=== PATIENT | female | born 1955 | race Caucasian/White ===

== ENCOUNTER 2017-03-14 14:55 | Inpatient (IN) | payer OTHER ==
--- NOTE | ~2017-03-14 | EKG ---
PATIENT: ZO JUDD UNIT #: [id number] Ventricular Rate: 67 BPM Atrial Rate: 67 BPM P-R Interval: 160 ms QRS Duration: 96 ms Q-T Interval: 420 ms QTC Calculation(Bezet): 443 ms P Chancellor: 64 degrees Calculated R Chancellor: -18 degrees Calculated T Chancellor: -38 degrees Diagnosis Line: Normal sinus rhythm Diagnosis Line: Inferior infarct (cited on or before 16-MAR-2017) Diagnosis Line: Abnormal ECG Diagnosis Line: When compared with ECG of 15-MAR-2017 11:13, Diagnosis Line: No significant change was found Diagnosis Line: Confirmed by DENISE CAMEJO MD ([id number]) on 03/16/2017 Diagnosis Line: 6:35:56 PM INTERPRETING MD: NELL LOPEZ
--- NOTE | ~2017-03-14 | US84 ---
[id number] [facility] [address]. [place], [place] [address] [id number] MR#: [id number] Acc #: [id number] NAME: ZO JUDD : 1955 SEX: F STUDY DATE/TIME: 03/15/2017 18:26 UNIT: [id number] ROOM: 556 STUDY DESCRIPTION: US LE Veins Complete Cach[place] Stdy Attending Physician: Dane Alonzo M.D. Ordering Physician: Dane Alonzo M.D. Primary Care Physician: Diane Jessica M.D. MEDICAL IMAGING REPORT This report is preliminary unless electronic signature is present EXAM Bilateral lower extremity venous Doppler INDICATIONS Chest pain for the past 2 days. Hypertension. PROCEDURE Shepherd-scale color Doppler spectral imaging deep veins of the right left leg. COMPARISON None FINDINGS Deep veins right left leg compress normally and show normal color Doppler and spectral characteristics. IMPRESSION No evidence for DVT in the right or left leg Dictated by... Josué Jacob M.D. THIS IS AN ELECTRONICALLY VERIFIED REPORT Josué Jacob M.D. at 03/18/2017 9:45 AM VILMA/clarice TD: 03/15/2017 21:17 JOB #: [id number] MEDICAL IMAGING REPORT Page 1 of 1 COPY
--- NOTE | ~2017-03-14 | DS ---
Unit #: [id number] #: [id number] Patient: ZO JUDD [id number] [place], [place] [address] [id number] I MR#: [id number] NAME: ZO JUDD ROOM: [facility] Age: 61 Sex: F Admission Date: 03/14/2017 : 1955 Discharge Date: 03/17/2017 Attending Physician: Dane Alonzo M.D. Primary Care Physician: Diane Jessica M.D. DISCHARGE SUMMARY DISCHARGE DIAGNOSES 1. Acute non ST elevation myocardial infarction. 2. Status post cardiac catheterization 03/15/[address] Alonzo at [facility] that reveals the following results. a. Left main normal. b. Left anterior descending artery normal. c. Left circumflex artery nondominant vessel with mid vessel stenosis of 100%. There is CESILIA-0 flow. Thrombus burden. d. Right coronary artery with 100% stenosis at the junction of the proximal third and distal 2/3 with CESILIA-0 interflow. Posterior descending artery and posterior left ventricular branches fill with retrograde left to right collaterals. e. Ejection fraction of 55%. There is severe hypokinesis of the inferior basal wall. 3. Status post angioplasty with drug-eluting stent to the mid circumflex artery and mid right coronary artery. 4. Hypertension. 5. Nicotine abuse. 6. Right upper lobe mass, questionable malignancy. 7. Asymptomatic sinus bradycardia. 8. Chronic obstructive pulmonary disease. DISCHARGE MEDICATIONS 1. Lipitor 80 mg q.h.s. 2. Lisinopril 10 mg daily. 3. Aspirin 81 mg daily. 4. Brilinta 90 mg b.i.d. 5. Protonix 40 mg daily. 6. Nitroglycerin 0.4 mg sublingual q.5 minutes x3 p.r.n. chest pain. 7. Amlodipine/benazepril 10/20 mg daily. HOSPITAL COURSE This is a 61-year-old white female who presented to the emergency room with a complaint of a burning dull ache in her upper chest that radiated into the inner aspect of her forearm into her left neck. She had no associated diaphoresis, dizziness or dyspnea. She ruled in for an acute myocardial infarction where her presenting troponin was 0.29 but peaked at 11.91, MB index 16.4. She is treated in the emergency room with aspirin and nitropaste. She was chest pain free. She was anticoagulation with Lovenox. Lipid profile was obtained, which found her to have good control of her cholesterol levels. She was started on high intensity, high dose statin because of an acute myocardial infarction. Her electrocardiogram was noted for inferior posterior wall ischemic changes. PETEY inhibitor was also given for remodeling. She was started on Integrilin drip. She was Unit #: [id number] #: [id number] Patient: ZO JUDD advised to undergo a cardiac catheterization for which she agreed. Cardiac catheterization finding was 100% stenosis of the mid circumflex artery after the first obtuse marginal branch. This was the culprit vessel. The right coronary had 100% stenosis mid vessel also. Left main and LAD was normal. For the 100% mid right coronary artery lesion there was successful deployment of a 5.20 mm long Synergy drug-eluting stent that was postdilated to a 3.88 mm. There was no residual stenosis with CESILIA-III flow. The circumflex mid vessel stenosis of 100% was reduced to 0% using a 2.5 x 24 mm Synergy drug-eluting stent. It was postdilated to 2.55 mm. The patient was started on dual antiplatelet therapy with aspirin and Brilinta. The cost of Brilinta for the patient was 18 dollars, which was affordable. She was advised to discontinued nicotine completely. She is to remain on dual antiplatelet therapy for at least one year. Her right radial site healed well. She had no postprocedure arrhythmias. Electrocardiogram stabilized with no acute changes. MB index the following day was 8.4. On admission chest x-ray showed a new right lung mass and a probable adenopathy of the right hilum. These features were concerning for malignancy. Dr. Rea was asked to see the patient. Followup CT of the chest revealed a soft tissue mass in the upper right lung measuring 4.7 x 4.9 cm. There was two adjacent dominant satellite nodules measuring about 12 to 22 mm. There was suspicion for malignancy. No suspicious nodules were seen in the left lung. He felt the patient had a component of COPD as well. She will need intrabronchial ultrasound done as an outpatient next week. She had an episode of bradycardia where heart rate dropped to 30 BPM. Beta-dutch was decreased from 50 mg of Lopressor b.i.d. to 25 mg b.i.d. She ambulated in the hallway with no further episodes of bradyarrhythmias. She is stable for discharge today. PHYSICAL EXAMINATION VITAL SIGNS: Blood pressure 114/67, heart rate 62, temperature 97.8. CHEST: Clear to auscultation. HEART: S1 and S2 per regular rate and rhythm. No murmurs, no rubs, or clicks. ABDOMEN: Soft, nontender. Bowel sounds are present. LUNGS: Lungs are diminished breath sounds without rales, rhonchi or wheezing. Right radial with a hematoma or bruising. 4+ pulse. DIAGNOSTIC STUDIES LABORATORY STUDIES: Glucose 95, BUN 15, creatinine 0.6, sodium 140, potassium 4.0, cholesterol 162, triglycerides 75, LDL 108, HDL 39, TSH 0.84. White count 7.2, hemoglobin 13.8, hematocrit 42.5, platelet count 186. IMAGING STUDIES: Ultrasound of the bilateral lower extremities, no evidence of deep vein thrombosis. See hospital course for chest x-ray and CT of the chest results. CARDIOVASCULAR STUDIES: Electrocardiogram - normal sinus rhythm with a rate of 67 BPM with Q waves noted in the inferior leads with T wave inversion. DISCHARGE INSTRUCTIONS 1. The patient will be discharged home today. 2. Followup with Dr. Alonzo in four weeks. She will need to call for an appointment. She will need to follow up with Dr. Rea next week Unit #: [id number] #: [id number] Patient: ZO JUDD for (1) . 3. Followup with a primary care physician in one to two weeks. 4. The patient may return to work on (2) without restrictions. 5. The patient is to be on dual antiplatelet therapy with aspirin and Brilinta for at least one year. She has been discharged home on PETEY inhibitor, beta-dutch, and statin. She has P.R.N. nitroglycerin. Dictated by... Donald Wang A.P.R.N. for S. James Bailey M.D. JESSICA/rena TD: 03/18/2017 07:01 JOB #: [id number] CC: [facility] Alejandrina Rodriguez M.D. DISCHARGE SUMMARY Page 1 of 1 X Donald Wang APRN DISCHARGE SUMMARY
--- NOTE | ~2017-03-14 | HP ---
Unit #: [id number] #: [id number] Patient: ZO JUDD [id number] [place], [place] [address] [id number] I MR#: [id number] NAME: ZO JUDD ROOM: 55 Age: 61 Sex: F Admission Date: 03/14/2017 : 1955 Attending Physician: Dane Alonzo M.D. Primary Care Physician: Diane Jessica M.D. HISTORY AND PHYSICAL HISTORY OF PRESENT ILLNESS This is a 61-year-old female who was in her usual state of health until about 8:30 this morning. She was at work and began to have substernal burning chest pain with a dull ache that radiated into her left inner aspect of her forearm and into her left neck. She had no associated dyspnea, diaphoresis or dizziness. She felt her left arm pain was similar to pain that she has on an ongoing basis from an old work injury. Her pain was so severe that she left work and went home. She laid down but still did not feel much better. She came to the emergency room for evaluation where she was found to have a mildly elevated Troponin of 0.29. Her electrocardiogram showed inferior posterior wall myocardial infarction. She was treated with aspirin and nitropaste, which eased her pain. Risk factors for ischemic heart disease includes hypertension, nicotine abuse and family history of heart disease. She has had no prior cardiac history of chest pain. No other episodes of chest pain in the past. She states she is reasonably active. PAST MEDICAL HISTORY 1. Hypertension. 2. Obesity. 3. Active smoker. 4. Asthma. PAST SURGICAL HISTORY No previous surgeries. 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 She smokes a pack of cigarettes daily for the past 30 years. Drinks alcohol on occasion. No illicit drug use. FAMILY HISTORY Father of kidney failure but had heart problems. Mother is currently living but has been told to have an enlarged heart. ALLERGIES No known drug allergies. HOME MEDICATIONS Amlodipine/benazepril 10/20 mg daily. REVIEW OF SYSTEMS CONSTITUTIONAL: Negative for fever or chills. Reports no weight gain or weight loss. Positive for weakness. Unit #: [id number] #: [id number] Patient: ZO JUDD HEENT: No headache, hearing or visual changes or difficulty with swallowing. No dizziness. CARDIOVASCULAR: Has chest pain described in the HPI. No palpitations, paroxysmal nocturnal dyspnea or orthopnea. No syncope or near syncope. RESPIRATORY: Negative for dyspnea, cough or hemoptysis. GASTROINTESTINAL: No abdominal pain, nausea or vomiting. No constipation or melena. EXTREMITIES: Negative for lower extremity edema. PHYSICAL EXAMINATION VITAL SIGNS: Blood pressure 162/92, heart rate 88, temperature 97.9, BMI 30. GENERAL: This is a pleasant 61-year-old middle age white female who appears younger than her stated age. NEUROLOGICAL: She is awake, alert and oriented. There are no focal weaknesses. NECK: Trachea is midline. No thyromegaly or lymphadenopathy. No jugular venous distention. HEART: S1, S2, heart sounds are normal. No murmurs. No rubs. No clicks. Regular rate and rhythm. LUNGS: With faint expiratory wheezes both lungs. There is faint rhonchi in the right lung. ABDOMEN: Soft, nontender, with bowel sounds present. EXTREMITIES: Without leg edema. FRAME TENDER: Within normal limits. DIAGNOSTIC STUDIES LABORATORY STUDIES: Hemoglobin 13.8, hematocrit 42.8, platelet count 194, white count 7.0. Sodium 138, potassium 4.1, BUN 12, creatinine 0.5, glucose 100. CK-MB 15.9, troponin 0.08 to 0.29. BNP 147. IMAGING STUDIES: Chest x-ray shows new right lung mass measuring 5.9 x 5.3 in the right mid to lower lung with adenopathy in the right hilum that is concerning for a malignancy. Bibasilar atelectasis. CARDIOVASCULAR STUDIES: Electrocardiogram - normal sinus rhythm, with a rate of 67 BPM with Q waves in the inferior leads, ST depression in V1 and V2 with poor R wave progression in V1 through V3. IMPRESSION 1. Acute inferior posterior wall non ST elevation myocardial infarction. 2. Hypertension. 3. Right lung mass, questionable malignancy. 4. Nicotine abuse. 5. Obesity. PLAN 1. Will continued on aspirin. Will add Lovenox and Integrilin drip for anticoagulation. 2. Start on nitrites. 3. Fasting lipid profile will be obtained. Will start on high dose high intensity statin given acute myocardial infarction. 4. Give beta-dutch and PETEY inhibitor. 5. Morphine for pain relief. 6. Recommend cardiac catheterization. This has been discussed with the patient and her family and they are agreeable. Will schedule for a.m. 7. Continue to trend cardiac enzymes and troponin. Unit #: [id number] #: [id number] Patient: ZO JUDD Dictated by Donald Wang A.P.R.N. for Alejandrina Rodriguez/rena TD: 03/15/2017 07:29 JOB #: [id number] HISTORY AND PHYSICAL Page 1 of 1 X Donald Wang APRN X HISTORY AND PHYSICAL
--- NOTE | ~2017-03-14 | CR72 ---
[facility] A Service of [facility] RADIOLOGY TEXT RESULTS PATIENT: ZO JUDD LOCATION: [facility] [id number] : 56 UNIT #: [id number] AGE: [address]: Dane Alonzo MD SEX: F ORDER DR: [id number] [facility] [address] [place], [place] [address] [id number] MR#: [id number] Acc #: [id number] NAME: ZO JUDD : 1955 SEX: F STUDY DATE/TIME: 03/14/2017 14:51 UNIT: [facility] ROOM: STUDY DESCRIPTION: CR Chest Single View Portable Attending Physician: Emmett Payne M.D. Ordering Physician: Emmett Payne M.D. Primary Care Physician: Diane Jessica M.D. MEDICAL IMAGING REPORT This report is preliminary unless electronic signature is present EXAM Frontal chest. DATE OF EXAM 03/14/2017 INDICATIONS 61-year-old female with chest pain, shortness of air, symptoms for a day, hypertension, asthma, tobacco abuse. REPORT Frontal chest. COMPARISON Compared with 09/28/2009. FINDINGS The examination is abnormal demonstrating a 5.9 x 5.3 cm oval to round mass in the wld-jz-[id number] lung zone on the right. There is new fullness of the right hilum. Imaging features are concerning for malignancy and associated adenopathy. Cardiac silhouette, otherwise, within normal limits. Vascularity unremarkable. Lung volumes are low and there is bibasilar atelectasis. No pneumothorax. IMPRESSION 1. There is a new right lung mass and probable adenopathy in the right hilum. Imaging features are concerning for malignancy. This could be best further assessed with a chest CT. 2. Lower lung volumes and probable atelectasis in the lung bases. No pneumothorax. STAT * RESULT [facility] A Service of [facility] RADIOLOGY TEXT RESULTS PATIENT: ZO JUDD LOCATION: [facility] [id number] : [birth year] UNIT #: [id number] AGE: [address]: Dane Alonzo MD SEX: F ORDER DR: Dictated by... Christian Martinez M.D. THIS IS AN ELECTRONICALLY VERIFIED REPORT Christian Martinez M.D. at 03/14/2017 8:10 PM Adeline TD: 03/14/2017 15:49 JOB #: [id number] MEDICAL IMAGING REPORT Page 1 of 1 COPY
--- NOTE | ~2017-03-14 | EKG ---
PATIENT: ZO JUDD UNIT #: [id number] Ventricular Rate: 48 BPM Atrial Rate: 48 BPM P-R Interval: 168 ms QRS Duration: 104 ms Q-T Interval: 474 ms QTC Calculation(Bezet): 423 ms P [place]: 65 degrees Calculated R [place]: -12 degrees Calculated T [place]: -17 degrees Diagnosis Line: Marked sinus bradycardia with sinus arrhythmia Diagnosis Line: Nonspecific ST abnormality Diagnosis Line: Abnormal ECG Diagnosis Line: When compared with ECG of 14-MAR-2017 13:16, Diagnosis Line: Non-specific change in ST segment in Inferior Diagnosis Line: leads Diagnosis Line: Nonspecific T wave abnormality no longer evident Diagnosis Line: in Anterolateral leads Diagnosis Line: Confirmed by SONIA UMAÑA MD ([id number]) on Diagnosis Line: 03/16/2017 6:39:22 AM INTERPRETING MD: CESAR
--- NOTE | ~2017-03-14 | EKG ---
PATIENT: ZO JUDD UNIT #: [id number] Ventricular Rate: 67 BPM Atrial Rate: 67 BPM P-R Interval: 178 ms QRS Duration: 102 ms Q-T Interval: 396 ms QTC Calculation(Bezet): 418 ms P [place]: 58 degrees Calculated R [place]: -11 degrees Calculated T [place]: 42 degrees Diagnosis Line: Normal sinus rhythm with sinus arrhythmia Diagnosis Line: Left ventricular hypertrophy with repolarization Diagnosis Line: abnormality Diagnosis Line: Abnormal ECG Diagnosis Line: When compared with ECG of 28-SEP-2009 20:20, Diagnosis Line: Vent. rate has decreased BY 39 BPM Diagnosis Line: ST no longer depressed in Inferior leads Diagnosis Line: Non-specific change in ST segment in Lateral leads Diagnosis Line: Nonspecific T wave abnormality, worse in Diagnosis Line: Anterolateral leads Diagnosis Line: Confirmed by SONIA UMAÑA MD ([id number]) on Diagnosis Line: 03/14/2017 9:37:33 PM INTERPRETING MD: CESAR
--- NOTE | ~2017-03-14 | CT57 ---
[facility] A Service of [facility] & [facility] RADIOLOGY TEXT RESULTS PATIENT: ZO JUDD LOCATION: [facility] 556-01 : [birth year] UNIT #: [id number] AGE: [address]: Dane Alonzo MD SEX: F ORDER DR: [id number] [facility] [address] [place], [place] [address] [id number] I MR#: [id number] #: [id number] NAME: ZO JUDD : 1955 SEX: F STUDY DATE/TIME: 03/14/2017 20:07 UNIT: [facility] ROOM: [facility] STUDY DESCRIPTION: CT Chest Wo Cont Attending Physician: Dane Alonzo M.D. Ordering Physician: Luca Rea M.D. Primary Care Physician: Diane Jessica M.D. MEDICAL IMAGING REPORT This report is preliminary unless electronic signature is present EXAM Chest CT, no contrast, 03/14/2017 INDICATIONS Chest pain, arm pain since this morning, hypertension, COPD. TECHNIQUE This CT exam was performed with one or more of the following radiation dose reduction techniques: automatic exposure control, adjustment of mA and/or kV according to patient size, and iterative reconstruction. Noncontrast CT chest was performed. Correlation is made with chest x-ray same date. FINDINGS CT chest: The lungs are emphysematous. Left lung is essentially clear. No pleural effusion on either side. CT confirms the presence of an upper lobe soft tissue mass on the right, measuring at least 4.7 x 4.9 cm. There are 2 adjacent dominant satellite nodules, 1 measuring about 12 mm and the second about 22 mm. There are other smaller punctate satellite nodules present as well. Imaging features are highly suspicious for malignancy until proven otherwise. There is probably a component of subtle tree-in-bud infiltrate in the upper lobe on the right which may be partially postobstructive in nature. Included thyroid unremarkable. No pericardial effusion. No axillary adenopathy. Aorta demonstrates no aneurysm. The examination is limited for sensitivity of detection of adenopathy with noncontrast technique. There is a subcentimeter meter precarinal node measuring 9 mm. Probable right hilar node measures 11 mm. Bronchoscopy may be useful for further assessment. PET CT could also be utilized for further assessment of metabolic activity and potentially identify occult lymph nodes not visible STS. [facility] A Service of [facility] RADIOLOGY TEXT RESULTS PATIENT: ZO JUDD LOCATION: [facility] 556-01 : [birth year] UNIT #: [id number] AGE: [address]: Dane Alonzo MD SEX: F ORDER DR: with noncontrast technique. Included upper abdomen demonstrates no acute finding. Osseous structures demonstrate thoracic kyphosis and spondylosis. No suspicious bone lesion. There is a well-circumscribed sclerotic lesion in the distal body of the sternum measuring up to 12 mm. Although technically indeterminate, a benign etiology is favored. Bone scan or PET scan, however, would be complimentary. Impression 1. Suspicious likely malignant mass in the upper lobe on the right measures 4.9 x 4.7 cm. Additional smaller satellite nodules are present along with probable tree-in-bud nodularity in the upper lobe related to a postobstructive infectious component. There are borderline sized lymph nodes in the mediastinum. Findings are suspicious for malignancy. Bronchoscopy may be complementary for further assessment given the location of the mass and satellite nodules. Alternative PET CT could be performed for further assessment of metabolic activity. 2. No suspicious pulmonary nodules in the left lung. No effusion. Background changes of emphysema. 3. Indeterminate technically but probably a benign sclerotic lesion in the sternum. 4. Thoracolumbar degenerative change and kyphosis. Dictated by... Christian Martinez M.D. THIS IS AN ELECTRONICALLY VERIFIED REPORT Christian Martinez M.D. at 03/14/2017 10:46 PM Marisol TD: 03/14/2017 21:55 JOB #: [id number] MEDICAL IMAGING REPORT Page 1 of 1 COPY
--- NOTE | ~2017-03-14 | CO ---
Unit #: [id number] #: [id number] Patient: ZO JUDD [id number] [address] [place], [place] [address] [id number] I MR#: [id number] NAME: ZO JUDD ROOM: 55 Age: 61 Sex: F Admission Date: 03/14/2017 : 1955 Attending Physician: Dane Alonzo M.D. Primary Care Physician: Diane Jessica M.D. CONSULTATION REPORT REASON FOR CONSULTATION Lung mass and COPD. CHIEF COMPLAINT Chest pain. HISTORY OF PRESENT ILLNESS This patient is basically a 61-year-old female with past medical history of likely COPD, presents with a complaint of chest pain and has been admitted with impression of elevated troponin and started on IV anticoagulation. Her chest x-ray showed new right lung mass and she has been complaining of mild cough, no shortness of breath and no hemoptysis, complaining of weight loss. REVIEW OF SYSTEMS Positive for pallor. No edema. No cyanosis. No jaundice. The rest is as per the history of present illness. Rest of 12-point review of system has been reviewed and is negative. PHYSICAL EXAMINATION VITAL SIGNS: Temperature 98. Pulse 87. Respiration 12. Blood pressure 168/91. NEUROLOGICAL: Awake, alert and oriented. No neuro deficit. HEENT: PERRLA, EOMI. NECK: Supple. No JVD. CHEST: Bilateral air entry. Bilateral mild rhonchi. GASTROINTESTINAL: Nontender, soft, bowel sounds positive. EXTREMITIES: No edema. SKIN: No rashes. No ulcer. LYMPHATIC: No lymphadenopathy. DIAGNOSTIC STUDIES LABORATORY: Labs have been reviewed. IMAGING: Has been reviewed. ASSESSMENT 1. Right lung mass. 2. Likely chronic obstructive pulmonary disease. 3. Non-ST elevation myocardial infarction. PLAN Plan is to continue patient on anticoagulation as per Cardiology. We will Unit #: [id number] #: [id number] Patient: ZO JUDD order noncontrast CT of the chest and continue oxygen and bronchodilator. Will also order 2D echo, lower extremity Doppler. Please see orders for details plan. Thank you very much for this consultation. We will continue to follow the patient along with you very closely. Dictated by... Luca Rea M.D. SJ/viola TD: 03/14/2017 21:32 JOB #: [id number] CONSULTATION REPORT Page 1 of 1 X Luca Rea MD CONSULTATION REPORT
--- NOTE | ~2017-03-14 | EKG ---
PATIENT: ZO JUDD UNIT #: [id number] Ventricular Rate: 52 BPM Atrial Rate: 52 BPM P-R Interval: 174 ms QRS Duration: 98 ms Q-T Interval: 460 ms QTC Calculation(Bezet): 427 ms P [place]: 66 degrees Calculated R [place]: -10 degrees Calculated T [place]: -15 degrees Diagnosis Line: Sinus bradycardia Diagnosis Line: Left ventricular hypertrophy with repolarization Diagnosis Line: abnormality Diagnosis Line: RSR' or QR pattern in V1 suggests right Diagnosis Line: ventricular conduction delay Diagnosis Line: Abnormal ECG Diagnosis Line: When compared with ECG of 15-MAR-2017 05:36, Diagnosis Line: (unconfirmed) Diagnosis Line: Premature atrial complexes are no longer Present Diagnosis Line: T wave amplitude has increased in Lateral leads Diagnosis Line: Confirmed by SONIA UMAÑA MD ([id number]) on Diagnosis Line: 03/16/2017 6:46:10 AM INTERPRETING MD: CESAR
[~2017-03-14 14:55] MED LIST: ALBUTEROL17 GM INH; COMBIVENT INH14.7 GM INH; PREDNISONE PO
[2017-03-14 15:01] LABS: BASOPHIL% 0.7 % (0-2.5); EOSINOPHIL% 0.6 % (0.0-7.0); HEMATOCRIT 42.8 % (35.0-45.0); HEMOGLOBIN 13.8 gm/dL (12.0-16.0); LYMPHOCYTE# 1.2 X10e3 (1.0-3.5); LYMPHOCYTE% 17.5 % (17.0-45.0); MEAN CELL VOLUME 89.8 FL (83-96); MEAN CORPUSCULAR HGB CONC 32.3 g/dL (30-36); MEAN PLATELET VOLUME 8.4 FL (6.5-11.5); MONOCYTE# 0.3 X10e3 (0-1.0); MONOCYTE% 4.3 % (3.0-12.0); NEUTROPHIL# 5.4 X10e3 (1.5-7.1); NEUTROPHIL% 76.9 % (40-75); PLATELET COUNT 194 X10e3 (140-420); RED BLOOD COUNT 4.76 X10e (3.90-5.30); RED CELL DISTRIBUTION WIDTH 14.3 % (11.0-15.5)
[2017-03-14 15:03] LABS: DIFF IND NO
[2017-03-14 15:17] LABS: INR 0.9; PROTHROMBIN TIME (PATIENT) 9.8 SECONDS (9.6-11.5)
[2017-03-14 15:29] LABS: ALBUMIN SERUM 3.9 g/dL (3.5-5.0); BILIRUBIN, DIRECT 0.1 mg/dL (0.0-0.2); BILIRUBIN,INDIRECT 0.4 mg/dL (0.0-0.9); BILIRUBIN,TOTAL 0.5 mg/dL (0.2-2.0); CALCIUM SERUM 9.2 mg/dL (8.4-10.2); CREATININE SERUM 0.5 mg/dL (0.6-1.4); GLOM FILT RATE Estimated 105.2 mL/min (>60); POTASSIUM 4.1 mmol/L (3.5-5.1)
[2017-03-14 15:30] LABS: POC - CKMB 3.7 ng/mL (0.0-7.9); POC - TROPONIN 0.08 ng/mL (<=0.05)
[2017-03-14] MEDS ORDERED: AMLODIPINE-BEN1 EAC3 PO (16:12)
[2017-03-14 16:43] LABS: POC - CKMB 15.9 ng/mL (0.0-7.9); POC - TROPONIN 0.29 ng/mL (<=0.05)
[2017-03-14 18:42] LABS: CHOLESTEROL 188 mg/dL (0-200); HDL CHOLESTEROL 54 mg/dL (35-95); LDL CHOLESTEROL 126 mg/dL ([, -130]); LDL/HDL RATIO 2 RATIO (0-4); TRIGLYCERIDES 39 mg/dL (10-160)
[2017-03-14 23:27] LABS: %MB 16.8 % (0.0-4.0); MB 122.1 ng/ml
[2017-03-15 05:19] LABS: HEMATOCRIT 41.9 % (35.0-45.0); HEMOGLOBIN 13.6 gm/dL (12.0-16.0); MEAN CELL VOLUME 88.9 FL (83-96); MEAN CORPUSCULAR HEMOGLOBIN 28.8 PG (28-34); MEAN CORPUSCULAR HGB CONC 32.4 g/dL (30-36); MEAN PLATELET VOLUME 8.3 FL (6.5-11.5); RED BLOOD COUNT 4.72 X10e (3.90-5.30); RED CELL DISTRIBUTION WIDTH 14.1 % (11.0-15.5); WHITE BLOOD COUNT 7.5 X10e3 (4.0-10.5)
[2017-03-15 05:33] LABS: PARTIAL THROMBOPLASTIN TIME 28.9 SECONDS (23.5-31.3); PROTHROMBIN TIME (PATIENT) 10.2 SECONDS (9.6-11.5)
[2017-03-15 06:41] LABS: CALCIUM SERUM 9.4 mg/dL (8.4-10.2); CREATININE SERUM 0.5 mg/dL (0.6-1.4); GLOM FILT RATE Estimated 105.2 mL/min (>60); POTASSIUM 4.1 mmol/L (3.5-5.1)
[2017-03-15 06:44] LABS: %MB 16.4 % (0.0-4.0)
[2017-03-15 13:31] LABS: ANGIO MB 225.5 ng/ml
[2017-03-15 22:06] LABS: ANGIO %MB 8.4 % (0.0-4.0); ANGIO MB 61.3 ng/ml
[2017-03-16 06:25] LABS: HEMATOCRIT 42.5 % (35.0-45.0); HEMOGLOBIN 13.8 gm/dL (12.0-16.0); MEAN CELL VOLUME 89.3 FL (83-96); MEAN CORPUSCULAR HGB CONC 32.5 g/dL (30-36); MEAN PLATELET VOLUME 8.9 FL (6.5-11.5); RED BLOOD COUNT 4.75 X10e (3.90-5.30); WHITE BLOOD COUNT 7.2 X10e3 (4.0-10.5)
[2017-03-16 07:19] LABS: CREATININE SERUM 0.6 mg/dL (0.6-1.4); GLOM FILT RATE Estimated 99.1 mL/min (>60)
[2017-03-17] MEDS ORDERED: LISINOPRIL10 MG PO (11:38)
[2017-03-17] MEDS ORDERED: NORVASC10 MG PO (11:41)
[2017-07-25] MEDS ORDERED: AMLODIPINE-BEN1 EAC3 PO (07:26)
[2017-07-25] MEDS ORDERED: LIPITOR80 MG PO (11:38)
[2017-07-25] MEDS ORDERED: ASPIRIN81 MG PO (11:39)
[2017-07-25] MEDS ORDERED: PROTONIX PO (11:40)
[2017-07-25] MEDS ORDERED: BRILINTA90 MG PO (11:40)
[2017-07-25] MEDS ORDERED: LOPRESSOR PO (11:41)
[2017-07-25] MEDS ORDERED: NITROGLYGERIN0.4 MG SL (11:41)
== END 2017-03-17 12:16 | disposition home or self-care (01) | DRG 247 ==
LOC: CED 14:55 → CEDOF 17:35 → C5B 21:29
PROVIDERS: Emergency Medicine; Internal Medicine Cardiovascular Disease
PROC: 4A023N7 Measurement of Cardiac Sampling and Pressure, Left Heart, Percutaneous Approach (ICD-10-PCS; principal; 2017-03-15)
PROC: 027034Z Dilation of Coronary Artery, One Artery with Drug-eluting Intraluminal Device, Percutaneous Approach (ICD-10-PCS; 2017-03-15)
PROC: B2151ZZ Fluoroscopy of Left Heart using Low Osmolar Contrast (ICD-10-PCS; 2017-03-15)
PROC: B2111ZZ Fluoroscopy of Multiple Coronary Arteries using Low Osmolar Contrast (ICD-10-PCS; 2017-03-15)
DX: I21.4 Non-ST elevation (NSTEMI) myocardial infarction (principal); I25.82 Chronic total occlusion of coronary artery; C34.11 Malignant neoplasm of upper lobe, right bronchus or lung; I10 Essential (primary) hypertension; E66.9 Obesity, unspecified; Z68.30 Body mass index [BMI] 30.0-30.9, adult; J45.909 Unspecified asthma, uncomplicated; F17.210 Nicotine dependence, cigarettes, uncomplicated; J44.9 Chronic obstructive pulmonary disease, unspecified; I25.10 Atherosclerotic heart disease of native coronary artery without angina pectoris; R00.1 Bradycardia, unspecified
CPT/HCPCS: 36415; 71010; 71250; 80048; 80061; 80076; 82550; 82553; 83880; 84443; 84484; 85025; 85027; 85610; 85730; 93005; 93970; 99285; C1769; C1874; C1887; C1894; C9113; J1327; J1644; J1650; J2250; J2270; J2405; J3010

== ENCOUNTER → 2017-07-25 | Outpatient (CLI) | payer OTHER ==
[~2017-07-25] VITALS: Ht 170.2 cm; Wt 80.7 kg
[~2017-07-25] MED LIST changes: +AMLODIPINE-BEN1 EAC3 PO; +ASPIRIN81 MG PO; +BRILINTA90 MG PO; +LIPITOR80 MG PO; +LISINOPRIL10 MG PO; +LOPRESSOR PO; +NITROGLYGERIN0.4 MG SL; +NORVASC10 MG PO; +PROTONIX PO
--- NOTE | ~2017-07-25 | XA91 ---
[facility] A Service of [facility] & [facility] RADIOLOGY TEXT RESULTS PATIENT: OZ JUDD LOCATION: CIVR : 57 UNIT #: [id number] AGE: [address]: Jamilah Tam MD SEX: F ORDER DR: [id number] [facility] [address] [place], [place] [address] [id number] O MR#: [id number] Acc #: [id number] NAME: ZO JUDD : 1955 SEX: F STUDY DATE/TIME: 07/25/2017 7:36 UNIT: CIVR ROOM: STUDY DESCRIPTION: XA CVC Tunneled W Port Attending Physician: Jamilah Tam M.D., Ph.D. Ordering Physician: Jamilah Tam M.D., Ph.D. Primary Care Physician: Arash Rincon M.D. MEDICAL IMAGING REPORT This report is preliminary unless electronic signature is present EXAM Fria-C-wszhzmpe insertion; 07/25/2017. HISTORY IV access needed for lung cancer treatment. PROCEDURE Informed consent was obtained. Study was performed with IV conscious sedation with hemodynamic monitoring provided by the nursing staff throughout the procedure, total sedation time 45 minutes. Fluoroscopic guidance was utilized including a single spot image and 0.2 minutes of fluoroscopy, and real-time sterile ultrasound guidance was used both to guide venous access and confirm vessel patency. Full standard sterile technique was utilized including sterile preparation, barrier draping, sterile gowns and gloves, as well as caps and masks. Following local anesthesia, the right internal jugular vein was accessed via Seldinger technique, tract dilated, and a peel-away sheath inserted. With a combination of blunt and sharp dissection, a pocket was created over the right upper chest wall following local anesthesia. Oickxu-B-Tvdn hub was inserted into the pocket and the catheter then tunneled to the venotomy site where it was measured, cut to length and inserted via a peel-away sheath. The port was accessed confirming good blood return and it flushed easily and the devise was then packed with heparin. The venotomy site was closed with deep 3-0 Vicryl fascial suture and N-butyl cyanoacrylate glue, and the pocket was then closed with interrupted deep fascial 3-0 Vicryl suture and running subcuticular 4-0 Monocryl suture and N-butyl cyanoacrylate glue. Patient tolerated the procedure well, and there were no complications. [facility] A Service of [facility] RADIOLOGY TEXT RESULTS PATIENT: ZO JUDD LOCATION: [facility] : 57 UNIT #: [id number] AGE: [address]: Jamilah Tam MD SEX: F ORDER DR: IMPRESSION 1. Successful ultrasound and fluoroscopically guided insertion of a right IJ Oodsud-U-Rttd without complication. 2. Conscious sedation as above. Dictated by... Robbin Jara M.D. THIS IS AN ELECTRONICALLY VERIFIED REPORT Robbin Jara M.D. at 07/26/2017 4:05 PM TEV/jagustin TD: 07/25/2017 17:43 JOB #: [id number] MEDICAL IMAGING REPORT Page 1 of 1 COPY
[2017-07-25 07:34] LABS: HEMATOCRIT 40.8 % (35.0-45.0); HEMOGLOBIN 13.8 gm/dL (12.0-16.0); MEAN CELL VOLUME 88.5 FL (83-96); MEAN CORPUSCULAR HGB CONC 33.9 g/dL (30-36); MEAN PLATELET VOLUME 8.1 FL (6.5-11.5); RED BLOOD COUNT 4.61 X10e (3.90-5.30); RED CELL DISTRIBUTION WIDTH 13.6 % (11.0-15.5); WHITE BLOOD COUNT 9.1 X10e3 (4.0-10.5)
[2017-07-25 07:46] LABS: INR 0.9; PARTIAL THROMBOPLASTIN TIME 25.1 SECONDS (23.5-31.3)
== END | disposition home or self-care (01) ==
LOC: CIVR 06:44
PROVIDERS: Internal Medicine Hematology & Oncology
DX: C34.80 Malignant neoplasm of overlapping sites of unspecified bronchus and lung (principal); C34.11 Malignant neoplasm of upper lobe, right bronchus or lung; Z45.2 Encounter for adjustment and management of vascular access device; I10 Essential (primary) hypertension; J44.9 Chronic obstructive pulmonary disease, unspecified; I25.10 Atherosclerotic heart disease of native coronary artery without angina pectoris; Z95.5 Presence of coronary angioplasty implant and graft; F17.200 Nicotine dependence, unspecified, uncomplicated
CPT/HCPCS: 36415; 76937; 77001; 85027; 85610; 85730; 99152; 99153; C1788; J0690; J1642; J2250; J3010

== ENCOUNTER → 2017-08-01 | Outpatient (CLI) | payer OTHER ==
--- NOTE | ~2017-08-01 | PFT ---
[id number] [facility]. [place], [place] [address] [id number] O MR#: [id number] NAME: ZO JUDD ROOM: SEX: F STUDY DATE/TIME: 08/09/2017 : 1955 AGE: 61 STUDY DESCRIPTION: Attending Physician: Jamilah Tam M.D., Ph.D. Primary Care Physician: Arash Rincon M.D. PULMONARY DIAGNOSTIC REPORT EXAM Pulmonary Function Test DESCRIPTION Spirometry reveals a moderate obstructive defect with an FEV1 of 1.63 liters, 57% of predicted. There is no significant response to bronchodilators. Flow volume loop is consistent with an obstructive defect. Lung volumes reveal hyperinflation and air trapping. Diffusion capacity is moderately reduced. Changes are consistent with emphysema. Dictated by... Vin Neri M.D. MANUELITO/christine TD: 08/12/2017 11:46 JOB #: [id number] CC: Jamilah Tam M.D., Ph.D. PULMONARY DIAGNOSTIC REPORT Page 1 of 1
--- NOTE | ~2017-08-01 | CT69 ---
[facility] A Service of [facility] & [facility] RADIOLOGY TEXT RESULTS PATIENT: ZO JUDD [facility] : 57 UNIT #: [id number] AGE: [address]: Jamilah Tam MD SEX: F ORDER DR: [id number] [facility] [address] [place], [place] [address] [id number] O MR#: [id number] Acc #: [id number] NAME: ZO JUDD : 1955 SEX: F STUDY DATE/TIME: 08/01/2017 11:15 [facility]IT[facility] ROOM: STUDY DESCRIPTION: CT Head W Contrast Attending Physician: Jamilah Tam M.D., Ph.D. Ordering Physician: Jamilah Tam M.D., Ph.D. Primary Care Physician: Arash Rincon M.D. MEDICAL IMAGING REPORT This report is preliminary unless electronic signature is present EXAM Head CT with contrast HISTORY Neoplasm. 61-year-old female of the diagnosis of lung cancer, malignant neoplasm of bronchus. Observe for suspected intracranial metastatic disease. TECHNIQUE Contrast enhanced head CT obtained in the axial plane during the intravenous administration of 75 mL of Isovue-370. This CT exam was performed with one or more of the following radiation dose reduction techniques: automatic exposure control, adjustment of mA and/or kV according to patient size, and iterative reconstruction. COMPARISON STUDIES There is no prior imaging of brain at this institution. FINDINGS Please be aware that CT scanning is considerably less sensitive than MRI for assessment for intracranial metastatic disease. There is no extraaxial fluid collection. There is no intracranial mass effect. The ventricles are normal in size and configuration and the borja-white junction is well-maintained. There is streak artifact at the level of the brainstem, probably from beam-hardening. The basilar cisterns are patent. No definite pathologic intracranial enhancement. No definite intracranial mass lesion or intracranial metastatic disease on CT scan. There is some mucosal thickening in the ethmoid air cells bilaterally. 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 The mastoid air cells are clear. No sinus air-fluid STS. [facility] A Service of [facility] & [facility] RADIOLOGY TEXT RESULTS PATIENT: ZO JUDD [facility]: [facility] : 57 UNIT #: [id number] AGE: [address]: Jamilah Tam MD SEX: F ORDER DR: taz visualized paranasal sinuses. IMPRESSION 1. No CT evidence for intracranial metastatic disease. Please be aware that CT scanning is less sensitive than MRI for assessment for intracranial metastases. 2. No acute intracranial abnormality. 3. Mild paranasal sinus disease. Dictated by... Brooklynn Abdul M.D. THIS IS AN ELECTRONICALLY VERIFIED REPORT Brooklynn Abdul M.D. at 08/05/2017 4:53 PM SAC/pcl TD: 08/02/2017 22:44 JOB #: [id number] MEDICAL IMAGING REPORT Page 1 of 1 COPY
[2017-08-01 15:41] LABS: POC - CREATININE 1.08 mg/dL (0.44-1.03)
== END | disposition home or self-care (01) ==
LOC: CRC 10:29
PROVIDERS: Internal Medicine Hematology & Oncology
DX: C34.11 Malignant neoplasm of upper lobe, right bronchus or lung (principal); C34.80 Malignant neoplasm of overlapping sites of unspecified bronchus and lung; J32.9 Chronic sinusitis, unspecified
CPT/HCPCS: 70460; 82565; 94060; 94726; 94729; Q9967